=== PATIENT | male | born 1970 | race Two or more races ===

== ENCOUNTER 2022-01-18 17:28 | Emergency (ER) | payer BC ==
[2022-01-18 18:44] LABS: CORONAVIRUS COVID-19 NAA POSITIVE (NEGATIVE); INFLUENZA A NAA NEGATIVE (NEGATIVE); INFLUENZA B NAA NEGATIVE (NEGATIVE)
[2022-01-18 19:30] VITALS: BP 129/72; PULSE 76
== END 2022-01-18 19:05 | disposition home or self-care (01) ==
LOC: MW.ED 17:28
DX: U07.1 COVID-19 (principal); Z88.0 Allergy status to penicillin; Z88.6 Allergy status to analgesic agent; Z91.02 Food additives allergy status; Z88.8 Allergy status to other drugs, medicaments and biological substances
CPT/HCPCS: 0240U; 99283

== ENCOUNTER 2022-02-23 23:02 | Emergency (ER) | payer BC ==
[2022-02-24] MEDS ORDERED: Aspirin 81 MG Tab.Chew PO ONE (00:07)
[2022-02-24 00:36] LABS: BLOOD UREA NITROGEN,BUN 15 mg/dL (7.0-18.0); CARBON DIOXIDE,CO2 25.9 mmol/L (21.0-32.0); CHLORIDE,CL 105 mmol/L (98-107); GLUCOSE RANDOM 124 mg/dL (74-106); POTASSIUM,K 3.6 mmol/L (3.5-5.1); SODIUM,NA 140 mmol/L (136-148)
[2022-02-24 02:07] VITALS: BP 120/71; PULSE 80
== END 2022-02-24 01:31 | disposition home or self-care (01) ==
LOC: MW.ED 23:02
DX: R07.89 Other chest pain (principal); E78.00 Pure hypercholesterolemia, unspecified; Z91.018 Allergy to other foods; Z88.6 Allergy status to analgesic agent; Z88.0 Allergy status to penicillin; Z88.8 Allergy status to other drugs, medicaments and biological substances
CPT/HCPCS: 36415; 71045; 80053; 83735; 84484; 85025; 93005; 99285; A9270; 93010; 99283

== ENCOUNTER 2024-07-01 08:02 | Day surgery (SDC) | payer BC ==
[2024-07-01] MEDS: Lactated Ringers 1,000 ML IV SCH (08:35)
[2024-07-01] MEDS ORDERED: Lactated Ringers 1,000 ML IV SCH (09:45)
[2024-07-01] MEDS ORDERED: propofoL 50 ML ONE (10:02)
[2024-07-01 10:47] VITALS: BP 99/62; PULSE 65
== END 2024-07-01 10:20 | disposition home or self-care (01) ==
LOC: MW.SDS 08:02
PROVIDERS: ATTEND Surgery
DX: K57.30 Diverticulosis of large intestine without perforation or abscess without bleeding (principal); K62.5 Hemorrhage of anus and rectum; R19.4 Change in bowel habit; E78.5 Hyperlipidemia, unspecified; K21.9 Gastro-esophageal reflux disease without esophagitis; E66.9 Obesity, unspecified; F32.A Depression, unspecified; Z88.8 Allergy status to other drugs, medicaments and biological substances; Z88.0 Allergy status to penicillin; Z79.82 Long term (current) use of aspirin; Z79.899 Other long term (current) drug therapy; Z68.38 Body mass index [BMI] 38.0-38.9, adult; Z87.891 Personal history of nicotine dependence
CPT/HCPCS: 45378; J2704; J7120